=== PATIENT | male | born 2000 | race Caucasian/White ===

== ENCOUNTER → 2025-06-21 | Outpatient (CLI) | payer OTHER, SELFPAY ==
--- NOTE | 2025-06-21 15:09 | RAD_ITS ---
PROCEDURE: KNEE 3 VIEWS 06/21/2025 REASON FOR EXAM: PAIN TECHNIQUE: KNEE 3 VIEWS COMPARISON: None. RAD/Knee 3 Views IMPRESSION: Prepatellar soft tissue swelling is seen; findings concerning for prepatellar b ursal fluid collection, specifically. No radiopaque foreign body is noted. No left knee joint effusion is seen. No significant arthritic process or joint narrowing is noted. No osseous destructive change is noted. No fracture or dislocation is evident. Reading Location: [place] [id number]
== END | disposition home or self-care (01) ==
LOC: MTRAD 15:09
PROVIDERS: Referring Provider Physician Assistant; Visit Provider Physician Assistant
DX: M25.562 Pain in left knee (principal)
CPT/HCPCS: 73562